=== PATIENT | male | born 1980 | race Caucasian/White ===

== ENCOUNTER 2018-02-04 10:45 | Emergency (ER) | payer SELFPAY ==
[2018-02-04] MEDS ORDERED: Adacel (T-DAP) 0.5 ML VIAL ONE (12:00)
== END 2018-02-04 12:25 | disposition home or self-care (01) ==
LOC: NAV ERS 10:45
DX: T63.301A Toxic effect of unspecified spider venom, accidental (unintentional), initial encounter (principal); F17.210 Nicotine dependence, cigarettes, uncomplicated
CPT/HCPCS: 90471; 90715